=== PATIENT | male | born 1985 | race Caucasian/White ===

== ENCOUNTER → 2023-03-03 | Outpatient (CLI) | payer BC ==
--- NOTE | 2023-03-03 11:33 | CT ---
EXAMINATION TYPE: CT abdomen pelvis wo con DATE OF EXAM: 03/03/2023 COMPARISON: None HISTORY: left flank pain CT DLP: 1058 mGycm Automated exposure control for dose reduction was used. TECHNIQUE: Helical acquisition of images was performed from the lung bases through the pelvis. FINDINGS: LUNG BASES: No significant abnormality is appreciated. Calcified granuloma right lower lobe. LIVER/GB: No significant abnormality is appreciated. PANCREAS: No significant abnormality is seen. SPLEEN: No significant abnormality is seen. ADRENALS: No significant abnormality is seen. KIDNEYS: There is a 3.7 cm hypodense lesion upper pole right kidney measuring 10 Hounsfield units com patible with benign cysts. URINARY BLADDER: No significant abnormality is seen. ADENOPATHY: None visualized. OSSEOUS STRUCTURES: No significant abnormality is seen. BOWEL: No significant abnormality is seen. Retained fecal debris throughout the colon. OTHER: Aorta normal caliber. IMPRESSION: NO EVIDENCE OF RENAL STONE OR CALCIFICATION. RETAINED FECAL DEBRIS CAN BE ASSOCIATED WITH CONSTIPATIO N. NO DEFINITE ACUTE PROCESS.
== END | disposition home or self-care (01) ==
LOC: RADCTMAIN 10:23
PROVIDERS: ATTEND Family Medicine
DX: N20.0 Calculus of kidney (principal)
CPT/HCPCS: 74176